=== PATIENT | male | born 1935 | race Caucasian/White ===

== ENCOUNTER → 2016-06-15 10:46 | Outpatient (CLI) | payer MEDICARE, BC ==
[2015-10-09 07:26] VITALS: BMI 21.2
[~2016-06-15 10:46] MED LIST: ASPIRIN81 MG PO; NASONEX NASAL S17 GM NS; NEXIUM40 MG PO; PLAVIX75 MG PO; PRAVACHOL20 MG PO
== END | disposition home or self-care (01) ==
LOC: D.NM 06-08 11:00 → D.CT 06-08 16:30 → D.NM 10:46
DX: C61 Malignant neoplasm of prostate (principal)

== ENCOUNTER → 2016-06-29 10:41 | Outpatient (CLI) | payer MEDICARE, BC ==
[2015-10-09 07:26] VITALS: BMI 21.2
== END | disposition home or self-care (01) ==
LOC: D.MRI 10:41
DX: C61 Malignant neoplasm of prostate (principal)

== ENCOUNTER → 2019-12-16 12:41 | Outpatient (CLI) | payer MEDICARE, BC ==
[2015-10-09 07:26] VITALS: BMI 21.2
== END | disposition home or self-care (01) ==
LOC: D.HCCECHO 12:30
PROVIDERS: ATTEND Internal Medicine Cardiovascular Disease
DX: I34.0 Nonrheumatic mitral (valve) insufficiency (principal)

== ENCOUNTER 2020-10-06 12:10 | Day surgery (SDC) | payer MEDICARE, BC ==
[~2020-10-06] VITALS: Ht 188 cm; Wt 84.8 kg
--- NOTE | ~2020-10-06 | OP ---
PATIENT NAME: SHANE LANE MEDICAL RECORD: [id number] :37 LOCATION:D.CAT ADMISSION DATE: SURGEON: ZAY FITZPATRICK MD DATE OF OPERATION: 10/06/2020 PREOPERATIVE DIAGNOSIS: Sick sinus syndrome with pauses. POSTOPERATIVE DIAGNOSIS: Sick sinus syndrome with pauses. PROCEDURE: 1. left subclavian vein dual lead pacemaker placement. 2. Fluoroscopic interpretation. SURGEON: Zay Fitzpatrick MD DESCRIPTION OF PROCEDURE: The patient's left chest was prepped and draped in sterile fashion. A total of 20 mL of 1% lidocaine with epinephrine was infused into the surrounding tissues. A transverse incision was made on the left superior lateral chest and the subcutaneous pouch was made over the pectoral fascia. Needle was used to cannulate the left subclavian vein and guidewires were advanced with ease. Fluoroscopy was used to note that the wires were in good position in the venous system. Dilators trocar devices were placed over the wires and the wires and dilators were removed. The leads were then advanced into the superior vena cava. Dr. Leonard then positioned the leads appropriately in the atrium and ventricle. Once there were noted to be in good position and functioning appropriately, then, these were sutured into place with 2-0 Ti-Cron. The leads were affixed to the pacemaker, which was placed into the subcutaneous pouch and sutured to the pectoral fascia with single interrupted 2-0 Ti-Cron. We irrigated out the wound bed with antibiotic solution. Subcutaneous tissues were reapproximated with interrupted 3-0 Vicryl and the skin was closed with running subcutaneous 5-0 Monocryl. COMPLICATIONS: None. CONDITION: Stable. ANESTHESIA: Local MAC. BLOOD LOSS: Minimal. TRANSINT:[id number] Voice Confirmation ID: [id number] DOCUMENT ID: [id number] ZAY FITZPATRICK MD CC: [id number] DICTATION DATE: 10/06/20 1508 MANAGER NON PROFIT: 10/06/20 2100 [facility] 10/06/20 [place] [id number]
--- NOTE | ~2020-10-06 | HEMODYNAMI ---
PATIENT:SHANE LANE MEDICAL RECORD: [id number] : 37 LOCATION:DAVID ADMISSION DATE: 10/06/20 Generatedon:115:12 Patient name: SHANE LANE Patient #: [id number] SSN: [id number] : 1935 Date of study: 10/06/2020 Page: Of Hemodynamic Procedure Report Patient Data Patient Demographics Procedure consent was obtained First Name: SHANE Gender: Male Last Name: DOMINGO : 1935 Middle Initial: H Age: 84 year(s) Patient #: [id number] Race: SSN: [id number] Additional ID: [id number] Contact details [address]: [address] [place] [address] State: [place] City: [place] Zip code: [address] Past Medical History Allergies: No known allergies Admission Admission Data Admission Date: 10/06/2020 Admission Time: 12:10 Admit Source: Other Lab Results Lab Result Date: 10/06/2020 Lab Result Time: 0:00 Biochemistry Name Units Result Min Max BUN mg/dl 20 --(----)*- 7 18 Creatinine mg/dl 1.2 --(---*)-- 0.6 1.3 eGFR ml/min 61.68174 *-(----)-- 90 120 NONAFRICAN CBC Name Units Result Min Max Hematocrit % 38.8 *-(----)-- 42 54 Hemoglobin g/dl 13 -*(----)-- 13.5 17.5 Procedure Procedure Types Cath Procedure Diagnostic Procedure PPM/ICD PPM Dual Implant Sedation Charges Moderate Sedation 25-39 minutes Procedure Description Procedure Date Procedure Date: 10/06/2020 Procedure Start Time: 14:39 Procedure End Time: 15:10 Procedure Staff Name Function Reg Smith MD Performing Physician Erica Childress RT Monitor Anabel Michael RT Scrub Funmilayo Post RN Nurse Zay Thacker MD Assisting physician Procedure Data Cath Procedure Fluoroscopy Diagnostic fluoroscopy Total fluoroscopy Time: 2.6 time: 2.6 min min Diagnostic fluoroscopy Total fluoroscopy dose: 24 dose: 24 mGy mGy Estimated blood loss: 10 ml Procedure Complications No complications Procedure Medications Medication Administration Route Dosage Oxygen etCO2 Nasal cannula 2 l/min 0.9% NaCl I.V. 25 ml/hr Ancef (1Gm/50ml NS) I.V.P.B 1 g Ancef Irrigation Topical 1 g (1gm/500ml NS) Lidocaine 1% added to field 20 Versed I.V. 1 mg Fentanyl I.V. 50 mcg Fentanyl I.V. 25 mcg Versed I.V. 0.5 mg Fentanyl I.V. 25 mcg Versed I.V. 0.5 mg Hemodynamics Rest HGB: 13 (g/dl) Heart Rate: 62 (bpm) Snapshots Pre Cath Intra NCS Post Cath Vital Signs Time Heart Resp SPO2 etCO2 NIBP (mmHg) Rhythm Pain Sedation Rate (ipm) (%) (mmHg) Status Level (bpm) 14:30:53 61 11 100 0 166/117(148) SB 0 (11) 10(A) , No pain 14:35:11 54 12 100 0 163/92(145) SB 0 (11) 10(A) , No pain 14:40:10 53 22 100 0 170/96(112) SB 0 (11) 9(A) , No pain 14:44:20 51 13 100 0 160/95(147) SB 0 (11) 9(A) , No pain 14:48:36 49 20 100 0 155/90(143) SB 0 (11) 9(A) , No pain 14:52:48 49 16 100 0 132/99(121) SB 0 (11) 9(A) , No pain 14:57:57 54 10 99 0 139/90(117) SB 0 (11) 9(A) , No pain 15:02:05 88 11 98 0 139/109(126) Paced 0 (11) 9(A) , No pain 15:06:13 63 12 98 0 142/94(124) Paced 0 (11) 9(A) , No pain 15:10:21 65 11 99 0 153/97(135) SB 0 (11) 10(A) , No pain Medications Time Medication Route Dose Verified Delivered Reason Notes Effectiv eness by by 14:26:29 Oxygen etCO2 2 Reg Mello used for Nasal l/min [facility] fire protection equipment technician cannula 14:27:39 0.9% NaCl I.V. 25 Reg Wallsie used for ml/hr [facility] fire protection equipment technician 14:27:55 Ancef I.V.P.B 1 g Reg Mello used for (1Gm/50ml [facility] fire protection equipment technician NS) 14:28:10 Ancef Topical 1 g Reg Rivasory used for Irrigation [facility] procedure (1gm/500ml MD BYRD NS) 14:28:26 Lidocaine added 20ml Reg Finney for local 1% to vial [facility] anesthetic field x2 MD BYRD 14:39:22 Versed I.V. 1 mg Reg Wallsie for [facility] RN sedation 14:39:32 Fentanyl I.V. 50 Reg Buffie for mcg [facility] RN sedation 14:48:57 Fentanyl I.V. 25 Reg Mello for mcg Luis Post RN sedation 14:49:04 Versed I.V. 0.5 Reg Wallsie for mg Luis Post RN sedation 14:52:07 Fentanyl I.V. 25 Reg Wallsie for mcg [facility] RN sedation 14:52:11 Versed I.V. 0.5 Reg Wallsie for mg [facility] RN sedation Procedure Log Time Note 13:55:43 Diagnostic Cath Status : Elective 13:56:15 Procedure Status PPM/ Gen Change/ Lead Revision/ Temp. 13:56:20 Time tracking: Regular hours (M-F 7:00 - 5:00) 13:56:25 Plan of Care:Hemodynamics will remain stable., Cardiac rhythm will remain stable., Comfort level will be maintained., Respiratory function will remain adequate., Patient/ family verbilizes understanding of procedure., Procedure tolerated without complication., Recovers from procedure without complications.. 14:03:42 Admit Source: Other 14:04:07 Informed consent obtained and on chart 14:06:39 Lab Result : Hemoglobin 13 g/dl 14:06:39 Lab Result : eGFR NONAFRICAN 61.15219 ml/min 14:06:39 Lab Result : BUN 20 mg/dl 14:06:39 Lab Result : Creatinine 1.2 mg/dl 14:06:39 Lab Result : Hematocrit 38.8 % 14:06:50 H&P Date Dictated: 09/24/2020 Within 30 days and on chart.. 14:06:53 Patient NPO since Midnight. 14:06:59 Patient allergic to No known allergies 14:07:05 Lab results completed and on chart. 14:07:09 Stress Test: no; N/A ? 14:07:10 Alarms reviewed by R. N. 14:07:11 Sharps counted by scrub and verified by R.N. 14:15:00 Funmilayo Post RN sent for patient. Start room use. 14:18:58 Patient received from Pre/Post Procedure Room to CCL 3 Alert and oriented. Tansferred to table in Supine position. 14:26:29 Oxygen 2 l/min etCO2 Nasal cannula was administered by Funmilayo Post RN; used for procedure; Verbal order read back and verified. 14:27:39 0.9% NaCl 25 ml/hr I.V. was administered by Funmilayo Post RN; used for procedure; Verbal order read back and verified. 14:27:55 Ancef (1Gm/50ml NS) 1 g I.V.P.B was administered by Funmilayo Post RN; used for procedure; Verbal order read back and verified. 14:28:10 Ancef Irrigation (1gm/500ml NS) 1 g Topical was administered by Reg Smith MD; used for procedure; Verbal order read back and verified. 14:28:26 Lidocaine 1% 20ml vial x2 added to field was administered by Reg Smith MD; for local anesthetic; Verbal order read back and verified. 14:29:44 Vital chart was started 14:30:49 Warm blankets applied, and sandra hugger turned on for patient comfort. 14:30:50 Correct patient and procedure confirmed by team. 14:30:51 Baseline sample Acquired. 14:30:51 ECG and BP/O2 sat monitors applied to patient. 14:30:53 Full Disclosure recording started 14:30:58 Rhythm: sinus bradycardia 14:31:00 Pre-procedure instructions explained to patient. 14:31:00 Pre-op teaching completed and patient verbalized understanding. 14:31:03 Family unavailable. 14:31:07 Is the patient allergic to Iodine/contrast media? No. 14:31:09 Was the patient premedicated? Yes 14:31:10 Is patient on blood thinner?No 14:31:12 Patient diabetic? No. 14:31:13 If diabetic: On Metformin? N/A 14:31:15 ----Pre-sedation anethsthesia assessment.---- 14:31:17 Previous problem with sedation/anesthesia? No ? 14:31:18 Snore? Yes 14:31:20 Sleep apnea? No 14:31:21 Deviated septum? No 14:31:22 Opens mouth fully? Yes 14:31:23 Sticks out tongue? Yes 14:31:25 Airway obstruction? No ? 14:31:27 Dentures? No ? 14:31:33 Patient pain scale 0/10 ?. 14:31:37 IV patent on arrival in left antecubital with 0.9% NaCl at [facility]. 14:31:43 Left chest area was prepped with chlora-prep and draped in sterile fashion 14:31:50 Use device set NANETTE PPM 14:31:52 2-0 Ticron Multipack ([id number]) opened to sterile field. 14:31:52 3-0 Vicryl Single Pack [id number] opened to sterile field. 14:31:53 5-0 Monocryl PS2 [id number] opened to sterile field. 14:31:53 Cautery Tip College Administrator opened to sterile field. 14:31:54 Cautery Pushbutton Pencil opened to sterile field. 14:31:55 Mepilex Dressing ([id number]) opened to sterile field. 14:34:22 Medtronic manufacturer's representative SUSANNEAMY GARCIAOE present for procedure. 14:34:30 Grounding pad site Left thigh. 14:34:32 Grounding pad site free from injury. 14:38:16 --------ALL STOP TIME OUT------ 14:38:16 Final Timeout: patient, procedure, and site verified with staff and physician. All members of the team are in agreement. 14:38:20 Left chest site verified by team. 14:38:31 Fire Safety Assessment: A--An alcohol-based skin anteseptic being used preoperatively., B--The operative or invasive procedure is being performed above the xiphoid process or in the oropharynx., C--Open oxygen or nitrous oxide is being used., D--An ESU, laser, or fiber-optic light is being used. 14:38:34 Physical assessment completed. ASA score P 2 - A patient with mild systemic disease as per Reg Smith MD. 14:38:38 Sedation plan: IV Moderate Sedation Medication:Versed, Fentanyl 14:38:44 Procedure started. 14:39:04 Pre sharps counted by scrub and verified by RN: Sutures: 7; Sponges: 5; Stick needles: 2; Skin needles: 2; Blade: 1; Cautery: 1 14:39:22 Versed 1 mg I.V. was administered by Funmilayo Post RN; for sedation; Verbal order read back and verified. 14:39:22 Lidocaine 1% was administered to left subclavicular area by Zay Thacker MD . 14:39:32 Fentanyl 50 mcg I.V. was administered by Funmilayo Post RN; for sedation; Verbal order read back and verified. 14:39:33 Incision made to left subclavicular area. 14:45:19 Generator pocket made/opened. 14:48:23 Medtronic 4574-53 PPM Lead opened to sterile field. 14:48:24 Medtronic 4074-58 PPM Lead opened to sterile field. 14:48:37 Left subclavian vein accessed with 7Fr Peel Away Sheath. 14:48:57 Fentanyl 25 mcg I.V. was administered by Funmilayo Post RN; for sedation; Verbal order read back and verified. 14:49:04 Versed 0.5 mg I.V. was administered by Funmilayo Post RN; for sedation; Verbal order read back and verified. 14:49:26 Left subclavian vein accessed with 7Fr Peel Away Sheath. 14:49:41 Ventricular lead inserted and advanced. 14:49:44 Atrial lead inserted and advanced. 14:51:42 Ventricular lead positioned. 14:52:07 Fentanyl 25 mcg I.V. was administered by Funmilayo Post RN; for sedation; Verbal order read back and verified. 14:52:10 Ventricular lead tested. 14:52:11 Versed 0.5 mg I.V. was administered by Funmilayo Post RN; for sedation; Verbal order read back and verified. 14:53:02 Atrial lead positioned. 14:53:59 Atrial lead tested. 14:55:19 Atrial lead repositioned. 14:55:31 Atrial lead tested. 14:56:18 Peel-a-way sheath was split and removed. 14:56:43 Ventricular lead attachment was completed with 2-0 ticron. 14:56:49 Atrial lead attachment was completed with 2-0 ticron. 14:57:[address] Medtronic LOUISE [address]T [address] Generator [id number] opened to sterile field. 14:58:35 PPM Dual was inserted subcutaneously to left chest. 14:59:42 Subcutaneous closure was completed with 2-0 ticron. 15:00:24 Generator was sutured in place with 3-0 vicryl. 15:03:05 Skin closure was completed with 5-0 monocryl. 15:03:12 Post sharps counted by scrub and verified by RN: Sutures: 2; Sponges: 5; Stick needles: 2; Skin needles: 2; Blade: 1; Cautery: 1 15:03:16 Immobilizer Large opened to sterile field. 15:06:34 Lt Chest incision was dressed with Mepilex dressing. 15:06:43 Procedure ended.(Physican Out) 15:06:56 Fluoroscopy time 02.60 minutes. 15:07:13 Fluoroscopy dose: 24 mGy 15:07:13 Flurop Dose total: 24 15:07:16 Dose Area Product 3347 mGy/cm. 15:07:19 Sharps counted by scrub and verified by R.N. 15:07:33 Post-op/insertion site Left Chest area dressed using a Mepilex dressing. 15:07:39 Post procedure rhythm: paced 15:07:42 Estimated blood loss: 10 ml 15:07:44 Post procedure instruction explained to patient.Patient verbalizes understanding. 15:07:45 Patient needs reinforcement of post procedure teaching. 15:09:12 Procedure type changed to Cath procedure, Diagnostic procedure, PPM/ICD, PPM Dual Implant, Sedation Charges, Moderate Sedation 25-39 minutes 15:09:50 Procedure and supply charges have been captured, reviewed, submitted and are correct. 15:09:54 Procedure Complication : No complications 15:09:59 Operative report dictated upon procedure completion. 15:09:59 See physician's report for complete and final results. 15:10:00 Report given to Pre/Post Procedure Room. 15:10:03 Patient transfered to Pre/Post Procedure Room with Stretcher. 15:10:05 Procedure ended. 15:10:05 Full Disclosure recording stopped 15:10:27 End room use (Document Last) 15:10:53 PRESSURE DRESSING PLACED ON TOP OF STERILE DRESSING. 15:12:10 Vital chart was stopped Device Usage Item Name Manufacture Quantity Catalog Hospital Part Current Minima l Lot# / Number Charge Number Stock Stock Serial# Code 2-0 Ticron Ethicon 3 [id number] 5 Multipack ([id number]) 3-0 Vicryl Ethicon 1 [id number] 000623 135811 211267 5 Single Pack [id number] 5-0 Monocryl Ethicon 1 [id number] 430080 048184 5 PS2 Y495G Cautery Tip Microtek 1 [id number] [id number] [id number] 5 [employer] Cautery Microtek 1 [id number] 069508 83292 661855 5 [employer] Pencil Mepilex Cardinal 1 [id number] 789313 956808 901800 5 [employer] ([id number]) Medtronic Medtronic 1 4574-53 264564 401208 527091 5 4574-53 PPM [id number] Lead EXP: 07/12/2021 Medtronic Medtronic 1 4074-58 336443 552375 521175 5 4074-58 PPM [id number] Lead EXP: 03/16/2022 Medtronic Medtronic 1 [id number] 5 LOUISE XT [id number] Generator EXP [id number] : 02/06/2022 Immobilizer Cardinal 1 [id number] 141567 350526 538956 5 [facility] Signature Audit Mullens Stage Time Signature Unsigned Intra-Procedure 10/06/2020 Erica Childress 3:11:10 PM RT(R) Intra-Procedure 10/06/2020 Funmilayo Post RN 3:11:31 PM Intra-Procedure 10/06/2020 Reg Luevano 3:12:08 PM Neto BYRD [facility] [address] [place] [address]
[2020-10-06] MEDS ORDERED: VITAMIN D21250 MC1 PO (12:20)
[2020-10-06] MEDS ORDERED: ZOCOR10 MG PO (12:21)
[2020-10-06] MEDS ORDERED: VITAMIN C500 M1 PO ×2 (12:22→12:28)
[2020-10-06] MEDS ORDERED: VITAMIN D325 MC1 PO (12:22)
[2020-10-06] MEDS ORDERED: XTANDI40 MG PO (12:23)
[2020-10-06] MEDS ORDERED: VITAMIN D31250 MCG PO (12:31)
[2020-10-06 12:41] VITALS: BP 129/78; Ht 188 cm; Wt 84.8 kg
[2020-10-06 13:08] LABS: HEMATOCRIT 38.8 % (42.0-54.0); MCH 31.3 pg (26.0-34.0); MCHC 33.5 g/dL (31.0-37.0); MCV 93.3 fL (80.0-100.0); MEAN PLATELET VOLUME 10.7 fL (7.4-10.4); RBC 4.16 10x6/uL (4.20-6.10); RDW 12.5 % (11.5-14.5); WBC 6.6 10x3/uL (4.8-10.8)
[2020-10-06 13:17] LABS: ANION GAP 13.3 mmol/L (8-16); CALCIUM 9.4 mg/dL (8.5-10.1); CARBON DIOXIDE 26.1 mmol/L (21.0-32.0); CREATININE - SERUM 1.2 mg/dL (0.6-1.3); POTASSIUM - SERUM 4.4 mmol/L (3.5-5.1)
[2020-10-06 13:29] LABS: APTT 26.7 SECONDS (22.8-39.4); INR 1.07 (0.85-1.17); PROTIME 12.9 SECONDS (11.6-15.0)
--- NOTE | 2020-10-06 15:20 | NUR ---
PT REC'D TO CATH RECOVERY ROOM 3 VIA STRETCHER, MONITORS ESTAB. DAUGHTER AT BS. SEE POWER LINE INSTALLER FLOWSHEETS. ALARMS ON AND C/L IN REACH.
--- NOTE | 2020-10-06 15:35 | NUR ---
PT RESTING QUIETLY, VSS. CM - ATRIAL PACED, NO ECTOPY NOTED. VSS. L CHEST DSG C/D/I, NO S/S DRAINAGE OR SWELLING, L ARM SLING IN PLACE. PT DENIES PAIN OR NEEDS. ALARMS ON AND C/L IN REACH.
--- NOTE | 2020-10-06 16:05 | NUR ---
VSS. CM - A PACED. NO ECTOPY NOTED. PT RESTING QUIETLY, DENIES PAIN OR NEEDS. L CHEST PRESSURE DSG OFF, MEPILEX DSG C/D/I, NO REDNESS OR DRAINAGE NOTED. ALARMS ON AND C/L IN REACH.
--- NOTE | 2020-10-06 16:17 | NUR ---
ALL DISCHARGE TEACHING REVIEWED WITH PT AND HIS DAUGHTER, INCLUDING RESTRICTIONS, MEDS AND F/U APPT. BOTH VERBALIZE UNDERSTANDING. PIV D/C'D INTACT, DSG APPLIED. PT ASSISTED UP AND WITH GETTING DRESSED.
--- NOTE | 2020-10-06 16:25 | NUR ---
PT D/C'D VIA WC TO PRIVATE VEHICLE WITH ALL PAPERWORK AND BELONGINGS.
--- NOTE | 2020-10-07 08:06 | OP ---
PATIENT NAME: ERASTO DOYLE MEDICAL RECORD: [id number] :37 LOCATION:D.CAT ADMISSION DATE: SURGEON: EMILY JUNG MD DATE OF OPERATION: 10/06/2020 PROCEDURE: Lead portion of permanent pacemaker placement. INDICATION: Sick sinus syndrome with pauses. SURGEON: Zay Thacker MD. DESCRIPTION OF PROCEDURE: After left subclavian was cannulated via modified Seldinger technique via Dr. Thacker first under fluoroscopic guidance, I placed the RV lead in the RV apex without difficulty. After adequate R waves and thresholds were obtained, I then placed the right atrial lead in the right atrial appendage without difficulty. After adequate P waves and thresholds were obtained, the leads were attached to appropriate poles of the generator and the pocket was closed via Dr. Thacker. IMPRESSION: Successful lead portion of permanent pacemaker placement of Erasto Doyle. ESTIMATED BLOOD LOSS: Minimal. COMPLICATIONS: None. DISPOSITION: To the floor, stable. TRANSINT:[id number] Voice Confirmation ID: [id number] DOCUMENT ID: [id number] EMILY JUNG MD at 0806 CC: [id number] DICTATION DATE: 10/06/20 1501 BUILDING GUARD DEPUTY SHERIFF: 10/06/202120 [facility] 10/06/20 [facility] [address] [place] [address]
== END 2020-10-06 16:25 | disposition home or self-care (01) ==
LOC: D.CATH 12:10
PROVIDERS: ATTEND Internal Medicine Interventional Cardiology
DX: I49.5 Sick sinus syndrome (principal); I25.10 Atherosclerotic heart disease of native coronary artery without angina pectoris; I34.0 Nonrheumatic mitral (valve) insufficiency